=== PATIENT | female | born 1965 | race Caucasian/White ===

== ENCOUNTER → 2018-01-06 08:19 | Outpatient (CLI) | payer OTHER, SELFPAY ==
--- NOTE | 2018-01-06 08:32 | MM_ITS ---
MM Dig screening mamm BI w/CAD ORDERING PHYSICIAN : Naty Godfrey PATIENT AGE: 52 years GENDER: Female COMPARISON: None available the technologist tell me they have called for previous, but prior studies never have arrived No hormones no new complaints. INDICATION: ITS.REASON: SCREENING Previous benign biopsy right breast TECHNIQUE: Standard CC and MLO images were obtained. R2 CAD reviewed. FINDINGS: . RIGHT BREAST: . area of mild asymmetric density mild architectural distortion at the upper outer quadrant of right breast. 9--10:00 right central breast. Likely reflects postbiopsy changes but is noted.. We have requested Prior studies but they cannot be obtained . Suggest 4 month month follow-up to further evaluate this feature.. There is a metallic marker just towards the medial aspect of this area of subtle increased density in changes likely reflecting a previous percutaneous biopsy. If the primary care office has any information as to facility where prior breast imaging performed and or previous breast biopsy procedure this information be helpful to obtain prior images. . Also note some a few tiny calcifications in the deep right breast which appear punctate and benign character, but can be further reviewed & evaluated on these additional images. LEFT BREAST: Unremarkable. No areas of concern on the left follow-up in one year on left IMPRESSION: --------- ... RIGHT BREAST-sugges short term t follow-up right mammogram April 2018 The patient has had a previous biopsy towards 10:00 lateral right breast. Metallic marker seen in this region. With some mild mild asymmetric density just lateral to the marker. This minimal density dissipate between views but would benefit from follow-up study to confirm stability. Likely some mild changes from previous biopsy in this region as well.. We been waiting for outside studies-since May would be be very helpful, but they do not arrive or have been purged. . ... Left Breast: no areas of concern follow-up left mammogram 1 year BI-RADS Category: 3 Probably Benign Finding Short Term Follow-up RECOMMENDED FOLLOW-UP: 3M 3 MONTH FOLLOWUP Suggest follow-up right mammogram April 2018 (A letter has been sent to the patient regarding results of the study.) Although no mammograms available the patient does have a previous CT abdomen from July 2013 which included the lower two thirds of breast. Likely MicroMark clip evident posteriorly & images suggest a similar mildly asymmetric character breast glandular tissue on right. This further supporting the short interval follow-up approach to this patient ..
== END ==
PROVIDERS: Family Provider Nurse Practitioner Women's Health; PCP Nurse Practitioner Women's Health; Visit Provider Nurse Practitioner Women's Health
DX: Z12.31 Encounter for screening mammogram for malignant neoplasm of breast (principal)
CPT/HCPCS: 77067

== ENCOUNTER → 2018-04-09 13:14 | Outpatient (CLI) | payer OTHER, SELFPAY ==
--- NOTE | 2018-04-09 13:21 | MM_ITS ---
MM Dig mamm DX unilat RT CAD INDICATION: Follow-up abnormal mammogram ORDERING PHYSICIAN: Naty Godfrey PATIENT AGE: 52 years COMPARISON: 01/06/2018, 09/18/2016, 07/23/2015 TECHNIQUE: Standard images performed along with spot compression views FINDINGS: There is average fibroglandular tissue. There is architectural distortion in the upper outer aspect of the right breast as previously described which is not felt to be significant change compared to the previous exams consistent with postbiopsy changes. A metallic marker is present in this region. There was a small parenchymal opacity in the deep upper right breast on MLO view which did appear to compress out as fibroglandular tissue. No malignant appearing mass or malignant appearing microcalcifications. The calcifications in the medial aspect of the right breast are stable. IMPRESSION: Benign findings, no evidence of malignancy BI-RADS Category: 2 Benign Finding(s) Recommend follow-up screening exam December 2018 (A letter has been sent to the patient regarding results of the study.)
== END ==
PROVIDERS: PCP Nurse Practitioner Women's Health; Visit Provider Nurse Practitioner Women's Health
DX: R92.2 Inconclusive mammogram (principal)
CPT/HCPCS: 77065

== ENCOUNTER → 2019-03-11 15:29 | Outpatient (CLI) | payer OTHER, SELFPAY ==
--- NOTE | 2019-03-11 15:35 | MM_ITS ---
PROCEDURE: MM DIG SCREENING MAMM BI W/CAD CLINICAL INDICATION: SCREENING There is no personal or family history of breast cancer. There has been a previous biopsy right breast for benign disease. COMPARISON: MY Digital Dx BILAT from 07/23/2015 MY Digital Screen BILAT from 09/18/2016 [facility] MM Dig screening mamm BI w/CAD from 01/06/2018 [facility] MM Dig mamm DX unilat RT CAD from 04/09/2018 TECHNIQUE: Standard CC and MLO images were obtained. R2 CAD reviewed. FINDINGS: Scattered fibroglandular densities are seen throughout both breasts. There is a biopsy clip right breast. There is stable minimal post biopsy scarring adjacent to the biopsy clip. There is a mole marker right breast. There is no suspicious lesion and no suspicious microcalcifications. IMPRESSION: Fibrofatty parenchyma with no suspicious lesions seen BI-RAD Category: 2 Benign Finding(s) FOLLOW-UP: 1YR 1 Year Follow-up (A letter has been sent to the patient regarding results of the study.) Dictated by: Dr. Jarrett Marroquin MD 03/13/2019 11:[address] Jarrett Marroquin MD in [place] 03/13/2019 11:07
== END ==
PROVIDERS: PCP Nurse Practitioner Women's Health; Visit Provider Nurse Practitioner Women's Health
DX: Z12.31 Encounter for screening mammogram for malignant neoplasm of breast (principal)
CPT/HCPCS: 77067

== ENCOUNTER 2020-12-28 10:09 | Emergency (ER) | payer OTHER, SELFPAY ==
[2020-12-28 10:10] VITALS: BP 137/81; PULSE 80; RESP 16; TEMP 36.6; O2SAT 98; BMI 30.1
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
[2020-12-28 10:51] VITALS: BP 128/89; PULSE 78; RESP 16; TEMP 36.6; O2SAT 98
== END 2020-12-28 10:52 | disposition home or self-care (01) ==
PROVIDERS: Emergency Provider Emergency Medicine; PCP Nurse Practitioner Women's Health
DX: S39.012A Strain of muscle, fascia and tendon of lower back, initial encounter (principal); S16.1XXA Strain of muscle, fascia and tendon at neck level, initial encounter; V43.62XA Car passenger injured in collision with other type car in traffic accident, initial encounter; Y92.413 State road as the place of occurrence of the external cause
CPT/HCPCS: 99281